=== PATIENT | male | born 1980 | race Caucasian/White ===

== ENCOUNTER 2018-08-10 12:35 | Emergency (ER) | payer OTHER ==
[2018-08-10 12:40] VITALS: BMI 31.1
--- NOTE | 2018-08-10 12:56 | PDOC ---
History of Present Illness - General Chief Complaint: Pain, Acute Stated Complaint: FEVER,ABD PAIN Time Seen by Provider: 08/10/18 12:54 - History of Present Illness Initial Comments: 08/10/18 13:22 The patient is a 38 year old male with no significant PMH who presents for evaluation of sore throat, cough, nausea, and diarrhea. The patient reports a 2 day history of non-productive cough, body aches, sore throat with associated non-bloody diarrhea and nausea. The patient also report epigastric abdominal cramping with bowel movements. He notes that his symptoms persisted despite taking tylenol prompting his presentation to the ED for further evaluation. He notes that his daughter is ill with similar symptoms. He otherwise denies SOB, chest pain, numbness, tingling, weakness, or changes with urination or bowel movements. Past History - Past Medical History Allergies/Adverse Reactions: Allergies Allergy/AdvReac Type Severity Reaction Status Date / Time No Known Allergies Allergy Verified 08/10/18 12:38 Home Medications: Ambulatory Orders Mag Hydrox/Al Hydrox/Simeth [Mylanta *Suspension*] 30 ml PO Q6H PRN #10 cup 12/22 COPD: No - Immunization History Immunization Up to Date: Yes - Suicide/Smoking/Psychosocial Hx Smoking History: Never smoked Hx Alcohol Use: No Drug/Substance Use Hx: No Review of Systems - Review of Systems Comments:: 08/10/18 13:25 Constitutional: Fatigue, Body aches, Subjective fever. HEENT: nasal congestion, sore throat. No Rhinorrhea, visual changes Cardiovascular: No chest pain, syncope, palpitations, lightheadedness Respiratory: Cough. No SOB, Hemoptysis, Gastrointestinal: Abdominal cramping, nausea, diarrhea. No Vomiting, Constipation, Melena Genitourinary: No Dysuria, Frequency, Urgency, Hesitancy, Hematuria, Flank pain Musculoskeletal: No Myalgia, arthralgia Skin: No rashes, itching, bruising, pallor Neurologic: Headache. No Dizziness, Numbness, Weakness, or Tingling Psychiatric: No Hallucinations. No SI or HI *Physical Exam - Vital Signs Last Vital Signs Temp Pulse Resp BP Pulse Ox 98.0 F 98 H 18 136/66 96 08/10/18 12:38 08/10/18 12:38 08/10/18 12:38 08/10/18 12:38 08/10/18 12:38 - Physical Exam Comments: 08/10/18 13:30 General Appearance: Nourished. No Apparent Distress HEENT: Nasal Congestion noted on exam. No Pharyngeal Erythema, Tonsillar Exudate, Tonsillar Erythema Neck: No Cervical Lymphadenopathy Respiratory/Chest: Lungs Clear, Normal Breath Sounds. No Crackles, Rales, Rhonchi, Wheezing Cardiovascular: Regular Rhythm, Regular Rate. No Murmur, Gallops, Rubs Gastrointestinal/Abdominal: Normal Bowel Sounds, Soft. No Guarding, Rebound, Tenderness Musculoskeletal: No CVA Tenderness Extremity: Normal Capillary Refill Integumentary: Normal Color, Dry, Warm Neurologic: Fully Oriented, Alert, Normal Mood/Affect, Normal Response, Moderate Sedation - Procedure Monitoring Vital Signs: Procedure Monitoring Vital Signs Temperature 98.0 F 08/10/18 12:38 Pulse Rate 98 H 08/10/18 12:38 Respiratory Rate 18 08/10/18 12:38 Blood Pressure 136/66 08/10/18 12:38 O2 Sat by Pulse Oximetry (%) 96 08/10/18 12:38 ED Treatment Course - LABORATORY CBC & Chemistry Diagram: 08/10/18 13:21 08/10/18 13:21 Medical Decision Making - Medical Decision Making 08/10/18 13:30 The patient is a 38 year old male with no significant PMH who presents for evaluation of sore throat, cough, nausea, and diarrhea. Differential includes but is not limited to: Viral syndrome, Gastritis, Pancreatitis, Infectious, Metabolic Derangement. Given the patient's history and physical exam, it is likely the patient's symptoms are due to a viral syndrome. However, we will obtain a cbc, cmp, lipase to evaluate further. We will treat with iv fluids, tylenol and continue to monitor and reassess while here in the ED. 08/10/18 14:25 CBC, cmp, lipase are unremarkable. The patient reports improvement in his symptoms and appears clinically well on exam. We are comfortable discharging the patient home with primary care provider follow up. We discussed the results , plan, and return precautions with the patient who voiced understanding and is agreeable with the plan. *DC/Admit/Observation/Transfer Diagnosis at time of Disposition: Viral syndrome - Discharge Dispostion Disposition: HOME Condition at time of disposition: Stable Decision to Admit order: No - Prescriptions Prescriptions: Mag Hydrox/Al Hydrox/Simeth [Mylanta *Suspension*] 30 ml PO Q6H PRN #10 cup PRN Reason: Diarrhea - Referrals Referrals: Lester London MD [Primary Care Provider] - - Patient Instructions Printed Discharge Instructions: DI for Viral Syndrome Additional Instructions: Please return to the ER if you experience concerning or worsening symptoms including worsening difficulty breathing, weakness, or chest pain, fevers. Your lab results were normal here in the ER. You may continue to use ibuprofen or tylenol as needed to help with your symptoms at home. Please call to schedule a follow up appointment with your primary care provider within 2-3 days to discuss your ER visit and further management of your symptoms. - Post Discharge Activity
--- NOTE | 2018-08-10 12:59 | PDOC ---
Attending Attestation - HPI HPI: 08/10/18 13:53 The patient is a 38 year old male with no significant PMH presenting with nausea , non-productive cough, diarrhea, and epigastric cramping today. Patient states he is only experiencing the epigastric cramping when he uses the bathroom. Patient reports taking Tylenol with no relief of his symptoms. Patient states his daughter is having similar symptoms at home. Patient denies cp, sob, palpitations, vomiting, or urinary symptoms. Allergies: NKDA Surgeris: None reported. Social Hx: No reported alcohol, drug or cigarette use. <Shirin Veloz - Last Filed: 08/10/18 14:24> - Physicial Exam PE: 08/10/18 14:28 Agree with resident exam. PAtient is alert and oriented and in extremely well appearing. Speaking in complete sentences. - Medical Decision Making 08/10/18 14:30 Pt presents to the ED complaining of non productive cough, sore throat and loose stools. Labs are within normal limits. Patient feels improved after IV hydration. Will discharge home with instructions to return to the ED for worsening symptoms. 08/10/18 14:30 <Nataliia Worthy - Last Filed: 08/10/18 14:31>
[2018-08-10] MEDS ORDERED: ACETAMINOPHEN 1000 MG/100 ML VIAL (NON FORMULARY) IVPB ONE (13:14)
[2018-08-10] MEDS ORDERED: SODIUM CHLORIDE 1,000 ML IV STA (13:14)
[2018-08-10] MEDS ORDERED: ACETAMINOPHEN INJECTION 100 ML IVPB ONE (13:17)
[2018-08-10 13:34] LABS: BASO % 0.2 % (0-2.0); EOS % 0.5 % (0-4.5); HEMATOCRIT 38.1 % (35.4-49); HEMOGLOBIN 13.7 GM/dL (11.7-16.9); LYMPH % 11.8 % (8-40); MCH 32.7 pg (25.7-33.7); MCHC 35.9 g/dl (32.0-35.9); MEAN CELL VOLUME 91.1 fl (80-96); MEAN PLT VOLUME 7.2 fl (7.5-11.1); MONO % 9.4 % (3.8-10.2); NEUT % 78.1 % (42.8-82.8); PLATELET COUNT 242 K/MM3 (134-434); RBC 4.18 M/mm3 (4.00-5.60); RDW 12.8 % (11.9-15.9); WHITE BLOOD COUNT 8.3 K/mm3 (4.0-10.0)
[2018-08-10 14:11] LABS: ALBUMIN 3.5 g/dl (3.4-5.0); ALK PHOS 99 U/L (45-117); ANION GAP 6 MMOL/L (8-16); BILIRUBIN,TOTAL 0.4 mg/dL (0.2-1); BLOOD UREA NITROGEN 10 mg/dL (7-18); CALCIUM 8.3 mg/dL (8.5-10.1); CHLORIDE 104 mmol/L (98-107); CO2 27 mmol/L (21-32); CREATININE 0.7 mg/dL (0.55-1.3); GLUCOSE,RANDOM 88 mg/dL (74-106); LIPASE 86 U/L (73-393); POTASSIUM 4.2 mmol/L (3.5-5.1); SGOT/AST 23 U/L (15-37); SGPT/ALT 43 U/L (13-61); SODIUM 137 mmol/L (136-145); TOT PROT 7.7 g/dl (6.4-8.2)
[2018-08-10 14:38] VITALS: BP 128/78; PULSE 84; TEMP 98.4
== END 2018-08-10 14:35 | disposition home or self-care (01) ==
LOC: JER 12:35
PROC: 3E0337Z Introduction of Electrolytic and Water Balance Substance into Peripheral Vein, Percutaneous Approach (ICD-10-PCS; principal; 2018-08-10)
PROC: 3E033NZ Introduction of Analgesics, Hypnotics, Sedatives into Peripheral Vein, Percutaneous Approach (ICD-10-PCS; 2018-08-10)
DX: B34.9 Viral infection, unspecified (principal)
CPT/HCPCS: 36415; 80053; 83690; 85025; 96361; 96374; 99282-25; J0131; J7030

== ENCOUNTER 2019-04-21 08:25 | Emergency (ER) | payer OTHER | END 2019-04-21 09:32 | disposition home or self-care (01) | LOC: JERFT 08:25 ==

== ENCOUNTER 2019-10-19 16:43 | Emergency (ER) | payer OTHER ==
[2019-10-19 16:47] VITALS: BP 139/84; PULSE 84; TEMP 98.2; BMI 31.4
[2019-10-19] MEDS ORDERED: IBUPROFEN 400 MG TABLET (FP) PO ONE ×2 (17:27→17:32)
--- NOTE | 2019-10-19 17:32 | PDOC ---
History of Present Illness - General Chief Complaint: Sore Throat Stated Complaint: SORE THROAT Time Seen by Provider: 10/19/19 16:56 History Source: Patient - History of Present Illness Timing/Duration: reports: other Past History - Past Medical History Allergies/Adverse Reactions: Allergies Allergy/AdvReac Type Severity Reaction Status Date / Time No Known Allergies Allergy Verified 10/19/19 16:47 Home Medications: Ambulatory Orders Mag Hydrox/Al Hydrox/Simeth [Mylanta *Suspension*] 30 ml PO Q6H PRN #10 cup 08/10/18 Cetirizine HCl [Zyrtec -] 10 mg PO DAILY #7 tablet 04/21/19 Hydrocortisone 1% Cream [Hytone 1% Cream -] 1 applic TP QID #1 tube 04/21/19 Prednisone 10 mg PO DAILY #5 tab.ds.pk 04/21/19 Ibuprofen [Motrin -] 800 mg PO Q6H #30 tablet 10/19/19 COPD: No - Immunization History Immunization Up to Date: Yes - Psycho Social/Smoking Cessation Hx Smoking History: Never smoked Have you smoked in the past 12 months: No Hx Alcohol Use: No Drug/Substance Use Hx: No Review of Systems - Review of Systems Constitutional: No: Fever HEENTM: Yes: Nose Congestion, Throat Pain. No: Ear Pain Respiratory: No: Cough, Shortness of Breath, Wheezing *Physical Exam - Vital Signs Last Vital Signs Temp Pulse Resp BP Pulse Ox 98.2 F 84 18 139/84 99 10/19/19 16:45 10/19/19 16:45 10/19/19 16:45 10/19/19 16:45 10/19/19 16:45 - Physical Exam General Appearance: Yes: Appropriately Dressed. No: Apparent Distress HEENT: positive: Normal ENT Inspection, Normal Voice. negative: TMs Normal, Pharynx Normal, Scleral Icterus (R), Scleral Icterus (L), Muffled/Hoarse voice Neck: positive: Supple. negative: Lymphadenopathy (R), Lymphadenopathy (L) Respiratory/Chest: positive: Lungs Clear, Normal Breath Sounds. negative: Respiratory Distress Cardiovascular: positive: Regular Rate, S1, S2 Integumentary: positive: Dry, Warm Neurologic: positive: Fully Oriented, Alert, Normal Mood/Affect Medical Decision Making - Medical Decision Making 03/15/20 17:32 39-year-old male no significant history, here with sore throat and congestion for 4 days. No cough, body aches, fever or chills. No recent travel or known sick contacts see exam M/l viral URI Exam wnl Dc w/ symptomatic tx Discharge - Discharge Information Problems reviewed: Yes Clinical Impression/Diagnosis: Viral URI Condition: Good Disposition: HOME - Additional Discharge Information Prescriptions: Ibuprofen [Motrin -] 800 mg PO Q6H #30 tablet - Follow up/Referral - Patient Discharge Instructions Patient Printed Discharge Instructions: DI for Viral Upper Respiratory Infection -- Adult - Post Discharge Activity
== END 2019-10-19 18:10 | disposition home or self-care (01) ==
LOC: JERFT 16:43
DX: J06.9 Acute upper respiratory infection, unspecified (principal); B97.89 Other viral agents as the cause of diseases classified elsewhere
CPT/HCPCS: 99283-25

== ENCOUNTER 2021-01-30 02:43 | Emergency (ER) | payer OTHER ==
[2021-01-30 03:00] VITALS: BMI 27.3
[2021-01-30] MEDS ORDERED: METHOCARBAMOL 500 MG TABLET PO ONE (05:04)
[2021-01-30] MEDS ORDERED: ACETAMINOPHEN 500 MG TABLET (FP) PO ONE (05:05)
[2021-01-30] MEDS ORDERED: LIDOCAINE 5% TOPICAL PATCH TP ONE (05:05)
[2021-01-30] MEDS ORDERED: METHOCARBAMOL 500 MG TABLET ONE (05:40)
[2021-01-30] MEDS ORDERED: LIDOCAINE 5% TOPICAL PATCH ONE (05:40)
[2021-01-30] MEDS ORDERED: ACETAMINOPHEN 325 MG TABLET (FP) ONE (05:40)
[2021-01-30 07:02] VITALS: BP 100/54; PULSE 63; TEMP 98.2
[2021-01-30] MEDS ORDERED: LIDOCAINE PATCH REMOVAL MC SCH (22:00)
== END 2021-01-30 09:22 | disposition home or self-care (01) ==
LOC: JER 02:43
DX: M54.5 Low back pain (principal); M54.2 Cervicalgia
CPT/HCPCS: 71045-TC-FY; 72050-TC-FY; 72070-TC-FY; 72100-TC-FY; 72125-TC; 99285-25